=== PATIENT | male | born 1950 | race Caucasian/White ===

== ENCOUNTER 2018-08-30 14:36 | Inpatient (IN) ==
[2018-08-30] MEDS ORDERED: NS 1,000 ML ONE (14:56)
--- NOTE | 2018-08-30 15:15 | EKG Report ---
Test Performed on : 08/30/2018 2:47:48 PM Test Reason : bradycardia Blood Pressure : / mmHG Vent. Rate : 039 BPM Atrial Rate : 035 BPM P-R Int : 000 ms QRS Dur : 100 ms QT Int : 504 ms P-R-T Axes : 000 008 054 degrees QTc Int : 405 ms Junctional bradycardia. Abnormal ECG No previous ECGs available Unconfirmed Result
--- NOTE | 2018-08-30 15:16 | Diag Imaging Result Doc PS360 ---
EXAM: CHEST-PORTABLE HISTORY: bradycardia weakness TECHNIQUE: Portable chest single view COMPARISON: 08/28/2018 FINDINGS: The lungs are well expanded. The heart is not enlarged. The vessels are not distended. There are no infiltrates. No effusion identified. IMPRESSION: Negative exam. Electronically signed by Gurjit Pitts 08/30/2018 3:14 PM
[2018-08-30 15:17] LABS: BASO# 0.01 X1000 (0.0-0.2); BASO% 0.2 % (0.0-0.8); EOS# 0.02 X1000 (0.0-0.7); EOS% 0.3 % (0.0-10.0); HEMATOCRIT 44.4 % (42.0-52.0); HEMOGLOBIN 15.1 g/dL (14.0-18.0); IMM GRAN# 0.01 X1000 (0.0-0.04); IMM GRAN% 0.2 % (0.0-0.5); LYMPH# 1.06 X1000 (1.2-3.4); LYMPH% 16.1 % (20.5-51.1); MCV 88.3 FL (81-99); MONO# 0.54 X1000 (0.11-0.59); MONO% 8.2 % (1.7-9.3); MPV 12.2 FL (7.4-10.4); NEUT# 4.95 X1000 (1.4-6.5); PLT 125 X1000 (130-400); RBC 5.03 XMIL (4.7-6.1); WBC 6.59 X1000 (4.8-10.8)
[2018-08-30 15:20] LABS: AGAP 13; ALBUMIN 4.2 g/dL (3.5-5.0); ALKALINE PHOSPHATASE 48 U/L (32-122); BUN 12 mg/dL (8-22); CALCIUM 9.1 mg/dL (8.8-10.2); CHLORIDE 103 mmol/L (98-107); COSMO 277; CREATININE 0.7 mg/dL (0.7-1.2); ESTIMATED GFR > 60; GLUCOSE 99 mg/dL (70-104); GOT 19 U/L (10-34); GPT 17 U/L (10-44); LIPASE 21 U/L (13-60); MAGNESIUM 1.9 mg/dL (1.5-2.7); POTASSIUM 3.8 mmol/L (3.5-5.1); SODIUM 139 mmol/L (136-145); TCO2 23 mmol/L (25-35)
[2018-08-30] MEDS ORDERED: LR 500 ML IV ONE (15:31)
[2018-08-30] MEDS ORDERED: ZOFRAN IV ONE (15:31)
[2018-08-30 15:32] LABS: INR 1.03
[2018-08-30 15:34] LABS: D-DIMER 0.85 ug/mLFEU (0.0-0.52)
[2018-08-30] MEDS ORDERED: ATROPINE IV ONE (15:44)
--- NOTE | 2018-08-30 16:26 | Diag Imaging Result Doc PS360 ---
EXAM: CT ANGIOGRM PULMONARY ARTERIES HISTORY: [place] BURKE, ELEV D-DIMER TECHNIQUE: CT chest with intravenous contrast. Pulmonary arterial protocol with MIP images. COMPARISON: None. FINDINGS: Normal opacification of the pulmonary arteries and their major branches. No thoracic aortic aneurysm or dissection. The heart is mildly prominent. No enlarged lymph nodes. No pleural effusions. Mild emphysema. Mild increased markings in the lower lungs which may simply be atelectasis or fibrosis. No consolidation. No bronchiectasis. I see density in the right middle lobe on image 84. Limited images through the upper abdomen reveal thickening to the proximal duodenum. IMPRESSION: 1.No pulmonary emboli 2.Emphysema 3.Increased markings in the bases likely representing atelectasis 4.Limited images through the upper abdomen show thickening to the proximal duodenum which may represent duodenitis. This exam was performed using automated exposure control, adjustment of mA or kV according to patient size, and/or use of iterative reconstruction technique. Electronically signed by Gurjit Pitts 08/30/2018 4:24 PM
[2018-08-30] MEDS ORDERED: ATROPINE ONE (16:56)
--- NOTE | 2018-08-30 17:04 | EKG Report ---
Test Performed on : 08/30/2018 4:50:11 PM Test Reason : BRADYCARDIA Blood Pressure : / mmHG Vent. Rate : 044 BPM Atrial Rate : 044 BPM P-R Int : 154 ms QRS Dur : 112 ms QT Int : 514 ms P-R-T Axes : 044 007 052 degrees QTc Int : 439 ms Marked sinus bradycardia. Septal infarct , age undetermined Possible Lateral infarct , age undetermined Abnormal ECG When compared with ECG of 30-AUG-2018 14:47, (Unconfirmed) Sinus rhythm. has replaced Junctional rhythm. Unconfirmed Result
[2018-08-30] MEDS ORDERED: LR 1,000 ML IV ONE (18:10)
[2018-08-30] MEDS ORDERED: DILAUDID IV ONE (18:11)
[2018-08-30] MEDS ORDERED: PEPCID IV ONE (18:11)
[2018-08-30] MEDS ORDERED: PROTONIX IV ONE (18:11)
[2018-08-30] MEDS ORDERED: G.I. COCKTAIL PO ONE (18:11)
[2018-08-30] MEDS ORDERED: SODIUM CHLORIDE 0.9% INJ ONE ×2 (18:11)
[2018-08-30] MEDS ORDERED: DILAUDID IV PRN (18:30)
[2018-08-30] MEDS ORDERED: SODIUM CHLORIDE 0.9% INJ SCH (18:30)
[2018-08-30] MEDS ORDERED: ZOFRAN IV PRN (18:32)
[2018-08-30] MEDS: LR 1,000 ML IV ONE ×2 (18:32→21:02)
--- NOTE | 2018-08-30 19:39 | HISTORY AND PHYSICAL ---
PRIMARY CARE PHYSICIAN: Dr. Carmona. CHIEF COMPLAINT: Nausea, vomiting, diarrhea, and weakness for 4 days with bradycardia today. HISTORY OF PRESENT ILLNESS: This is a 67-year-old gentleman with a history of peripheral neuropathy and hypertension. He presents to the emergency room a 2nd time in 48 hours complaining of abdominal pain, nausea, vomiting, diarrhea, as well as chills. He was evaluated on August 28 in the emergency room for the same. At that time, abdominal ultrasound revealed no evidence of any acute disease and a CT of the abdomen and pelvis revealed mild enterocolitis, diverticulosis without diverticulitis. He was given Zofran after IV hydration and discharged home. He states his symptoms have increased. He developed bradycardia today prompting his return to the emergency room. Of note, his currently has the same GI symptoms. PAST MEDICAL HISTORY: Hypertension, neuropathy. PAST SURGICAL HISTORY: Arthroscopy. SOCIAL HISTORY: He has rare social alcohol use. He denies tobacco or illicit drug use. He is . He has a daughter that is very active in his care. ALLERGIES: No known drug allergies. HOME MEDICATIONS: A list will be obtained by the nursing staff and once verified, we will review and restart as appropriate. REVIEW OF SYSTEMS: Discussed with patient with pertinent positives stated in the HPI. He denied any syncope, dizziness, chest pain, palpitations, any black or bloody vomitus or stools, cough, fever, chills, shortness of breath, any hematuria, dysuria, frequency or urgency. PHYSICAL EXAMINATION: GENERAL: This is a 67-year-old gentleman who is lying on the stretcher in the emergency room in mild distress. VITAL SIGNS: Blood pressure is 144/70 with a heart rate of 56, respirations are 18, temperature is 98 degrees oral with room air saturations 97 to 99 percent. EYES: Pupils equal, round, react to light. EOMs are intact .sclerae anicteric. HEENT: Head is normocephalic, atraumatic. Mucous membranes are moist. NECK: Supple. Trachea midline. CARDIOVASCULAR: Regular rate and rhythm. He is bradycardic. S1 and S2 appreciated. No murmurs. EXTREMITIES: He has no lower extremity edema with peripheral pulses palpable x4 extremities. PULMONARY: Breath sounds are clear with no increased work of breathing noted. Chest rises and falls symmetric with respiration. Chest wall is nontender to palpation. GASTROINTESTINAL: Abdomen is soft. He does have some tenderness just below the umbilicus with bowel sounds hypoactive. SKIN: Warm and dry. GENITOURINARY: He has no CVA or suprapubic tenderness. NEUROLOGIC: He is alert oriented x3. LABS: WBC is 6.5 with hemoglobin 15.1, hematocrit 44.4, platelets of 125,000. INR is 1.03, with a D-dimer of 0.85. Sodium 139, potassium 3.8, BUN 12, creatinine 0.7 with a glucose of 99. CTA pulmonary: Revealed no pulmonary emboli, emphysema. Increased markings in the bases likely read representing atelectasis. Limited images through the upper abdomen show thickening to the proximal duodenum which may represent duodenitis. Chest x-ray reveals a negative exam. Lungs are well expanded. Heart is not enlarged. Vessels are not distended. There are no infiltrates or no effusions. ASSESSMENT AND PLAN: 1. Bradycardia. 2. Possible duodenitis. 3. Gastroenteritis. 4. History of hypertension. 5. Deep vein thrombosis prophylaxis. 6. Elevated D-dimer with a CTA pulmonary that is negative for pulmonary embolus. PLAN: 1. The patient will be admitted to the intensive care unit at [place] and placed on telemetry. He will remain n.p.o. at present. We will obtain a CT of the abdomen and pelvis with oral contrast only. We will continue with IV hydration, giving Dilaudid for pain and Zofran for nausea. We will give Pepcid q.12 hours. We will obtain an echocardiogram as well as a bilateral lower extremity Doppler. 2. For deep vein thrombosis prophylaxis will use sequential compression devices. Gastrointestinal prophylaxis as stated above, Pepcid. Continue to trend his cardiac enzymes and troponins. Repeat an EKG in the morning. 3. Further treatments pending discussion with Dr. Zepeda and hospital course. Dictated by KATERINE Perez for Hans Zepeda MD cc: KATERINE Perez MD
--- NOTE | 2018-08-30 20:19 | HISTORY AND PHYSICAL ---
ADDENDUM: Patient seen and examined by me. Full note dictated and discussed with nurse practitioner. The patient presented to the hospital with nausea and vomiting. He was actually in the ER a couple of days ago for similar symptoms. He had apparently been started on Flagyl and Keflex by his primary care. Interestingly, his started this morning with very similar symptoms of nausea, vomiting and abdominal pain. I certainly expect that this is going to be a viral gastroenteritis. Currently the patient has very little bowel sounds. CT is pending of his abdomen. CT of his chest did show probable duodenitis. We are going to admit the patient to the hospital. We are not going to start antibiotics currently, as he has no source. He is having some bradycardia, which I believe is more of a vagal response. We will keep him NPO, IV fluids, and we will follow. cc: Hans Zepeda MD
[2018-08-30 20:49] LABS: AGAP 11; ALBUMIN 3.8 g/dL (3.5-5.0); ALKALINE PHOSPHATASE 42 U/L (32-122); BUN 11 mg/dL (8-22); CALCIUM 8.1 mg/dL (8.8-10.2); CHLORIDE 106 mmol/L (98-107); COSMO 277; CREATININE 0.7 mg/dL (0.7-1.2); ESTIMATED GFR > 60; GLUCOSE 101 mg/dL (70-104); GOT 14 U/L (10-34); GPT 13 U/L (10-44); POTASSIUM 3.8 mmol/L (3.5-5.1); SODIUM 139 mmol/L (136-145); TCO2 22 mmol/L (25-35); TOTAL PROTEIN 5.8 g/dL (6.3-8.3)
--- NOTE | 2018-08-30 21:28 | Diag Imaging Result Doc PS360 ---
EXAM: CT ABD/PELVIS W/ORAL CONT ONLY INDICATION: abd pain, N/V TECHNIQUE: This exam was performed using automated exposure control, adjustment of mA or kV according to patient size, and/or use of iterative reconstruction technique. COMPARISON: 08/28/2018 FINDINGS: During the interval, there has been development of significant thickening of the duodenum, especially the proximal duodenum and there is mild inflammatory stranding surrounding the proximal duodenum indicating duodenitis. As was seen on the previous study, there is liquid stool within the colon. The liver, gallbladder, spleen, pancreas, adrenal glands, kidneys, and urinary bladder are stable. There is no free abdominal gas. There is no evidence of bowel obstruction. IMPRESSION: Interval development of significant wall thickening involving the duodenum, especially proximally with surrounding inflammatory stranding indicating duodenitis. Electronically signed by Adriano Escobedo 08/30/2018 9:26 PM
[2018-08-31] MEDS ORDERED: PEPCID IV SCH (06:00)
[2018-08-31] MEDS: ZOFRAN IV PRN ×2 (06:07→14:49)
--- NOTE | 2018-08-31 06:32 | EKG Report ---
Test Performed on : 08/31/2018 06:28:10 AM Test Reason : BURKE Blood Pressure : / mmHG Vent. Rate : 049 BPM Atrial Rate : 049 BPM P-R Int : 160 ms QRS Dur : 102 ms QT Int : 482 ms P-R-T Axes : 043 008 053 degrees QTc Int : 435 ms Sinus bradycardia. Otherwise normal ECG When compared with ECG of 30-AUG-2018 16:50, (Unconfirmed) No significant change was found Unconfirmed Result
[2018-08-31 07:33] LABS: BASO# 0.01 X1000 (0.0-0.2); BASO% 0.2 % (0.0-0.8); EOS# 0.05 X1000 (0.0-0.7); EOS% 0.8 % (0.0-10.0); HEMATOCRIT 39.8 % (42.0-52.0); HEMOGLOBIN 13.4 g/dL (14.0-18.0); IMM GRAN# 0.02 X1000 (0.0-0.04); IMM GRAN% 0.3 % (0.0-0.5); LYMPH# 1.11 X1000 (1.2-3.4); LYMPH% 18.4 % (20.5-51.1); MCH 29.8 PG (27-31); MCHC 33.7 g/dL (33-37); MCV 88.4 FL (81-99); MONO# 0.55 X1000 (0.11-0.59); MONO% 9.1 % (1.7-9.3); MPV 12.9 FL (7.4-10.4); NEUT% 71.2 % (42.2-75.2); PLT 118 X1000 (130-400); RDW 12.8 % (11.5-14.5); WBC 6.04 X1000 (4.8-10.8)
[2018-08-31] MEDS ORDERED: G.I. COCKTAIL PO PRN (08:38)
--- NOTE | 2018-08-31 13:27 | Extremity Venous Study ---
EXAM: Venous U/S Bilateral Legs HISTORY: elevated ddimer TECHNIQUE: Bilateral lower extremity venous Doppler ultrasound COMPARISON: None. FINDINGS: Right: There is good flow and compressibility of the veins of the right lower extremity. No thrombus. Normal patient. Left: There is good flow and compressibility of the veins of the left lower extremity. No thrombus. Fluid collection in the left posterior fossa measuring at least 2.8 x 5.0 cm. IMPRESSION: No deep venous thrombosis identified. There is a large left popliteal cyst. Electronically signed by Gurjit Pitts 08/31/2018 1:25 PM
[2018-08-31] MEDS ORDERED: ULTRAM PO PRN (14:01)
[2018-08-31] MEDS ORDERED: LYRICA PO SCH (15:00)
--- NOTE | 2018-08-31 17:55 | ECHO REPORT ---
ORDER DATE: 08/30/2018 REQUESTING PHYSICIANS: Hospitalists. INDICATION: Bradycardia. M-MODE MEASUREMENTS: Left ventricle end diastole: 5.3. Left ventricle end systole: 3.2. Posterior wall: 0.9. Interventricular septum: 0.9. Left atrium: 3.98. Aortic diameter: 3.6. SUMMARY OF 2-DIMENSIONAL IMAGIN. Left ventricular function is normal with ejection fraction estimated at 65% to 70%. 2. The patient received Optison to optimize visualization of the endocardium. 3. The right ventricle is normal. 4. The atria appear to be normal. 5. The mitral valve is normal. Color flow mapping unremarkable. 6. Pulsed wave Doppler of mitral inflow is normal. 7. Tissue Doppler of septal and lateral mitral annulus averages 9 cm. 8. There is no diastolic dysfunction. 9. Pulmonary venous flow is normal. 10.The left atrium is mildly enlarged. 11.The tricuspid valve is normal with a mild degree of regurgitation. Pulmonary pressure is estimated at 32 mmHg. 12.The pulmonic valve is unremarkable. 13.The right-sided chambers appear to be generous in size. 14.There is no pericardial effusion, no mass, and no thrombus. SUMMARY: This study shows: 1. Normal left ventricular systolic function, ejection fraction of 65% to 70%. Optison injected for visualization of the endocardium. 2. No diastolic dysfunction. 3. Pulmonary pressure 32 mmHg. 4. Unremarkable aortic, mitral, pulmonic and tricuspid valves. Clinical correlation recommended. cc: MD Dianna Cosby CRNP
[2018-08-31 18:24] VITALS: BP 135/73
[2018-08-31] MEDS ORDERED: CARAFATE LIQUID PO SCH (20:00)
--- NOTE | 2018-08-31 20:48 | CONSULTATION ---
DATE OF CONSULTATION: 08/31/2018 IMPRESSION: 1. Bradycardia, probably vagally mediated in setting of acute GI illness and also in setting of probable chronic tendency for relative sinus bradycardia. 2. Acute GI illness, probably gastroenteritis. 3. Hypertension. RECOMMENDATIONS: 1. Agree with intravenous fluid replacement and antiemetics as required. 2. Given essentially normal echocardiography and clinical picture with likely vagally mediated bradycardia, no further cardiology intervention is needed. He is stable from my standpoint to go home. HISTORY OF PRESENT ILLNESS: This 67-year-old white male with past history of hypertension and chronic tendency for relative bradycardia was admitted through the emergency room with several days of nausea, vomiting and diarrhea. He was noted to have some bradycardia with heart rate dipping down into the 30 beat per minute range while he was in the ER with his abdominal symptoms. He was started on intravenous hydration and Zofran. He has had CT of the abdomen and abdominal ultrasound. There has been no lightheadedness or syncope. He reports no history of previous cardiac problems other than having borderline hypertension. He had evaluation for chest pain more than five years ago with coronary angiography which he relates was normal. This was performed in [place]. He is generally quite active without any cardiovascular symptoms. PAST MEDICAL HISTORY: 1. Hypertension. 2. Peripheral neuropathy. PAST SURGICAL HISTORY: Includes he has unspecified arthroscopic procedure. ALLERGIES: He has no known drug allergies. MEDICATIONS PRIOR TO ADMISSION: As listed. SOCIAL HISTORY: He works for the [employer]. He is . He is a nonsmoker. He drinks a rare alcoholic beverage. FAMILY HISTORY: Negative for premature coronary disease. REVIEW OF SYSTEMS: Pulmonary: Negative. Gastrointestinal: Noteworthy for nausea, vomiting, diarrhea. There has been no melena nor bright red blood per rectum. Constitutional: Negative. Remainder of review of systems negative/noncontributory with 14 total systems reviewed. PHYSICAL EXAMINATION: General: A pleasant older white male in no distress. Vital Signs: Blood pressure 135/73, heart rate 58, with ECG monitor showing sinus bradycardia. Oxygen saturation 98% on room air. HEENT: Extraocular movements appear intact. Mucous membranes are moist. Neck: Supple, without jugular venous distention. There are no carotid bruits. Chest: Clear to auscultation. Cardiac: Reveals a regular bradycardia without appreciable murmur or gallop. Abdomen: Soft. Bowel sounds are normal. Extremities: Without edema. Neurologic: Reveals him to be alert and fully oriented. Speech is fluent. He moves all 4 extremities equally well. Skin: Warm and dry. Psychiatric: Reveals mood to be appropriate. ELECTROCARDIOGRAM: 1. 12 lead EKG demonstrates sinus bradycardia at 39 beats per minute. 2. Current ECG monitor shows sinus bradycardia in the low 50 beat per minute range. LABORATORY DATA: Includes a white blood cell count 6.04, hematocrit 39.8, hemoglobin 13.4, platelet count 118,000. Sodium 139, potassium 3.8, chloride 106, carbon dioxide 22, BUN 11, creatinine 0.7, glucose 101. Initial troponin less than 0.01. Followup troponin less than 0.01. CPK 53. Followup CPK 51. cc: Dada Hwang MD
[2018-08-31] MEDS ORDERED: FLOMAX PO SCH (21:00)
--- NOTE | 2018-09-01 06:00 | DISCHARGE SUMMARY ---
ADMISSION DATE: 08/30/2018 DISCHARGE DATE: 08/31/2018 DISCHARGE DIAGNOSIS: 1. Bradycardia, stable. Expect that his significant bradycardia in the 30s and 40s was secondary to vasovagal from his infection. 2. Duodenitis, improving. 3. D-dimer with negative workup. 4. Viral gastroenteritis with a who has very similar symptoms. 5. Hypertension. 6. Chronic peripheral neuropathy. CONSULTATIONS: Cardiology. PROCEDURES: Echo. BRIEF HOSPITAL COURSE: Patient is a 67-year-old male who presented back to the ER and therefore was admitted with duodenitis. Expect this is secondary to viral gastroenteritis symptoms. Thankfully continued to improve. His heart rate went from the upper 30s to low 40s, climbed easily into the mid 50s. He tolerated it very well. On discharge, he is awake, alert. He is able to tolerate a full liquid diet without any difficulty. DISPOSITION: Patient will be discharged home. Greater than 30 minutes was spent in total care. Echo was negative. The patient's symptoms have improved. He is tolerating a regular diet and therefore we will discharge. cc: Hans Zepeda MD
--- NOTE | 2018-09-04 11:30 | PROVIDER DOCUMENTATION ---
This chart was entered by Domi Escobedo Scribe, acting as scribe for Chris Baires MD. HPI-Rash/Wound/ReCheck - General Chief Complaint: Return/Recheck Stated Complaint: FU Time Seen by Provider: 08/30/18 14:50 Source: patient, family Allergies/Adverse Reactions: Allergies Allergy/AdvReac Type Severity Reaction Status Date / Time No Known Allergies Allergy Verified 08/28/18 18:22 Home Medications: Home Medication List Medication Instructions Recorded Confirmed Last Taken Type Aspirin EC 81 mg PO DAILY 11/09/14 08/31/18 11/09/14 History Famotidine [Acid Control] 20 mg PO DAILY 11/09/14 08/31/18 11/09/14 History Meloxicam 15 mg PO DAILY 11/09/14 08/31/18 11/09/14 History Nifedipine [Procardia Xl] 30 mg PO DAILY 11/09/14 08/31/18 11/08/14 History Tadalafil [Cialis] 2.5 mg PO DAILY 11/09/14 08/31/18 Unknown History Tramadol [Ultram] 50 mg PO TID PRN 11/09/14 08/31/18 11/09/14 History Ondansetron Odt [Zofran 4 mg Odt] 4 mg SUBLINGUAL Q6H PRN PRN 08/31/18 08/31/18 Unknown History Pregabalin [Lyrica] 200 mg PO TID 08/31/18 08/31/18 Unknown History Tamsulosin [Flomax] 0.4 mg PO QHS 08/31/18 08/31/18 Unknown History - History of Present Illness-Dermatology Nature of Presenting Problem: 67 yom presents w/daughter w/cc daughter sts pt was here tuesday for nvd, weakness and d/c w/dehydration, got [address] Carmona called pt in flagyl and keflex. pt took first doses today and started having bradycardia. pt also having abd pain, poor magalys but able to drink. pt has no hx heart probs, pt had cath 5-10 yrs ago and was negative. pt has hx of neuropathy and htn, no dm. pt rx ultram, procardia and lyrica Review of Systems - Adult - REVIEW OF SYSTEMS - ADULT Constitutional: reports: no symptoms reported Eyes: reports: no symptoms reported Ears, Nose, Mouth & Throat: reports: no symptoms reported Cardiovascular: reports: see HPI, irregular heart rate (bradycardia). denies: chest pain, edema, palpitations Respiratory: reports: no symptoms reported Gastrointestinal: reports: see HPI, abdominal pain, diarrhea, poor appetite. denies: constipation, rectal bleeding, vomiting Genitourinary: reports: no symptoms reported Musculoskeletal: reports: no symptoms reported Integumentary: reports: no symptoms reported Neurological: reports: no symptoms reported Psychiatric: reports: no symptoms reported Endocrine: reports: no symptoms reported Hematologic/Lymphatic: reports: no symptoms reported Allergic/Immunologic: reports: no symptoms reported All Other Systems: Reviewed and Negative Past History - Adult - PAST MEDICAL HISTORY-ADULT Review of Records: reports: Old Records Reviewed, Nursing Assessment Review, Medications Reviewed, Social history reviewed & non-contributory. Major Childhood Illnesses: reports: denies history Cardiovascular: reports: HTN, other (heart cath) Respiratory: reports: denies history Gastrointestinal: reports: denies history Obstetrical/Gynecological: reports: denies history Genitourinary: reports: denies history Musculoskeletal: reports: denies history Neurological: reports: other (neuropathy) Endocrine/Immune: reports: denies history Other Conditions: reports: denies history - PRIOR SURGERIES/PROCEDURES Surgical/Procedure History: reports: other (heart cath) - IMMUNIZATION STATUS Childhood Immunizations: See Nurse Assessment Flu Vaccine: See Nurse Assessment - FAMILY HISTORY Family History: reviewed, not pertinent - SOCIAL HISTORY Smoking: non-smoker Substance Use: none/never Physical Exam-General - PHYSICAL EXAM-ADULT Initial Vital Signs Reviewed: Yes - CONSTITUTIONAL General Appearance: alert, mild distress, slow to respond. negative: anxious, obtunded, combative - EYES Eyes: PERRL/EOMI, pink conjunctivae - HEAD, EARS, NOSE, MOUTH & THROAT HENMT: normocephalic/atraumatic, moist mucous membranes, normal ENT inspection - NECK Neck: non-tender, full range of motion, supple, normal inspection - RESPIRATORY Respiratory: chest non-tender, lungs clear, normal breath sounds, no pleuratic chest pain, no respiratory distress, no accessory muscle use - CARDIOVASCULAR Cardiovascular: normal peripheral pulses, no edema, no gallop, no JVD, no murmur , bradycardia. negative: regular rate, rhythm, JVD, tachycardia - GASTROINTESTINAL (ABDOMEN) Abdominal Exam: normal bowel sounds, non tender, soft, no organomegaly, no pulsatile mass - LYMPHATIC Lymphatic: no adenopathy - MUSCULOSKELETAL Back Exam: normal inspection, no CVA tenderness, no vertebral tenderness Extremity: normal range of motion, non-tender, normal inspection Peripheral Pulses: radial (R): 2+, radial (L): 2+ - SKIN Integumentary: normal color, normal turgor, warm/dry - NEUROLOGIC Neurologic: grossly normal, no motor/sensory deficits - PSYCHIATRIC Psych/Mental Status: normal mood/affect, normal thought content, normal thought process, oriented x 3 Progress - PLAN OF CARE/RESULTS Result Diagrams: 08/31/18 04:42 08/30/18 20:18 - REASSESSMENT Reassessment #1 Time Reassessed: 15:30 Status: unchanged (STILL BRADYCARDIC AT 39/MIN, K+ OF AT 3.75, NO CP. MOD NAUSEA, LABS PENDING.) - EKG 1 Time of EKG reading by physician:: 14:50 EKG Read and Signed by:: Chris Baires EKG Interpretation (*Must complete 3 of following elements*): Abnormal Rate: 36 Rhythm: junctional bradycardia [place]: normal QRS: normal 2 Time of EKG reading by physician:: 17:00 EKG Read and Signed by:: Chris Baires EKG Interpretation (*Must complete 3 of following elements*): Abnormal Rate: 44 (septal infarct, age undetermined ) Rhythm: Marked sinus bradycardia [place]: normal QRS: normal [place] Interval: normal ST Wave: normal Comments: possible lateral infarct, age undetermined - XRAY 1 XRAY Study: Chest ( EXAM: CHEST-PORTABLE HISTORY: bradycardia weakness TECHNIQUE: Portable chest single view COMPARISON: 08/28/2018 FINDINGS: The lungs are well expanded. The heart is not enlarged. The vessels are not distended. There are no infiltrates. No effusion identified. IMPRESSION: Negative exam. Electronically signed by Gurjit Pitts 08/30/2018 3:14 PM) Impression: Normal, See EMR Report Comparison with other Films: changes noted - CT/MRI 1 CT Study: Angiogram Impression: Abnormal (EXAM: CT ANGIOGRM PULMONARY ARTERIES HISTORY: [place], ELEV D-DIMER TECHNIQUE: CT chest with intravenous contrast. Pulmonary arterial protocol with MIP images. COMPARISON: None. FINDINGS: Normal opacification of the pulmonary arteries and their major branches. No thoracic aortic aneurysm or dissection. The heart is mildly prominent. No enlarged lymph nodes. No pleural effusions. Mild emphysema. Mild increased markings in the lower lungs which may simply be atelectasis or fibrosis. No consolidation. No bronchiectasis. I see density in the right middle lobe on image 84. Limited images through the upper abdomen reveal thickening to the proximal duodenum. IMPRESSION: 1.No pulmonary emboli 2.Emphysema 3.Increased markings in the bases likely representing atelectasis 4.Limited images through the upper abdomen show thickening to the proximal duodenum which may represent duodenitis. This exam was performed using automated exposure control, adjustment of mA or kV according to patient size, and/or use of iterative reconstruction technique. Electronically signed by Gurjit Pitts 08/30/2018 4:24 PM), See EMR Report - CONSULTS/PCP/HOSPITALIST Notification #1 *Consult/PCP/Hospitalist*: Dr. Zepeda Time Discussed: 15:43 Consult Disposition: Admit (Dr. Zepeda will admit or transfer pt) Departure - Departure Date of Disposition Decision: 08/30/18 Time of Disposition Decision: 17:15 DIAGNOSIS: Diarrheal disease, Sinus bradycardia, Duodenitis Disposition: ADMITTED INPATIENT 09 Certified Medical Emergency: Emergent Condition: Fair - Critical Care Note This patient required my direct & personal management of CC.: Yes Total Time (mins): 45 Critical Care Statement: This patient required my direct personal management to treat or rule out processes, the absence of which, could potentiallly result in sudden, clinically significant life or limb threatening deterioration. Attestation - Physician/ MAGALYS Attestation Patient care was provided by Advanced Practice Provider:: No The physician spent face to face time with patient:: Yes Advanced Practice Provider documentation review:: Supervising physician onsite and consulted in the evaluation and care of this patient. The physician did have a face to face encounter with the patient. This chart was documented by the indicated scribe, (Domi Escobedo Scribe) and accurately reflects the services I performed and decisions made by me, Chris Baires MD, as attested by the provider's signature.
== END 2018-08-31 19:55 | disposition home or self-care (01) | DRG 310 ==
LOC: P.ED 14:36 → P.ICU 14:37
PROVIDERS: ATTEND Family Medicine
CPT/HCPCS: 71010; 71045; 71275; 74176; 80053; 82150; 82550; 83690; 83735; 84484; 85025; 85379; 85610; 93005; 93306; 93970; 96374; 96375; 99285; 99291; A9270; C8929; C9113; J0461; J1170; J2405; J7030; J7120; Q9957; Q9967; S0028; S0164